=== PATIENT | female | born 1960 | race Caucasian/White ===

== ENCOUNTER 2018-10-30 16:15 | Emergency (ER) | payer MEDICAID ==
[~2018-10-30] VITALS: Ht 165.1 cm; Wt 68.5 kg
[2018-10-30 16:21] VITALS: Ht 165.1 cm; Wt 68.5 kg
[2018-10-30 17:41] VITALS: BP 103/70
== END 2018-10-30 17:41 | disposition home or self-care (01) ==
LOC: ED 16:15
DX: M54.5 Low back pain (principal)

== ENCOUNTER 2019-03-28 12:56 | Emergency (ER) | payer OTHER ==
[~2019-03-28] VITALS: Ht 157.5 cm; Wt 69.4 kg
[2019-03-28 13:01] VITALS: Ht 157.5 cm; Wt 69.4 kg
[2019-03-28 14:05] VITALS: BP 117/59
== END 2019-03-28 14:05 | disposition home or self-care (01) ==
LOC: ED 12:56
DX: N64.4 Mastodynia (principal)

== ENCOUNTER 2020-07-30 18:57 | Emergency (ER) | payer OTHER ==
[~2020-07-30] VITALS: Ht 167.6 cm; Wt 71.7 kg
[2020-07-30 19:45] VITALS: Ht 167.6 cm; Wt 71.7 kg
[2020-07-30 21:09] LABS: BASOPHIL % 0.4 % (0-2); PLATELET COUNT 199 x10^3mcL (130-400); RED CELL DISTRIBUTION WIDTH 13.4 % (11.5-14.5)
[2020-07-30 21:23] LABS: CARBON DIOXIDE 27.8 mmol/L (21-32); CHLORIDE SERUM 105 mmol/L (98-107); CREATININE SERUM 0.8 mg/dL (0.6-1.0); GFR1 > 60 mL/min; GLUCOSE SERUM 107 mg/dL (74-106); POTASSIUM SERUM 3.6 mmol/L (3.5-5.1); SODIUM SERUM 141 mmol/L (136-145)
[2020-07-30 21:28] LABS: ALBUMIN 3.6 g/dL (3.4-5.0); ALKALINE PHOSPHATASE 117 U/L (46-116); ALT/SGPT 33 U/L (14-59); AST/SGOT 13 U/L (15-37); BILIRUBIN TOTAL 0.2 mg/dL (0.20-1.00); TOTAL PROTEIN, SERUM 6.9 g/dL (6.4-8.2)
[2020-07-30 22:01] LABS: ERYTHROCYTE SED RATE 13 mm/hr (0-30)
[2020-07-30 22:35] VITALS: BP 117/72
== END 2020-07-30 22:35 | disposition home or self-care (01) ==
LOC: ED 18:57
PROVIDERS: Emergency Medicine
DX: R51.9 Headache, unspecified (principal); R11.2 Nausea with vomiting, unspecified